=== PATIENT | female | born 1965 | race Caucasian/White ===

== ENCOUNTER 2016-12-05 10:48 | Emergency (ER) | payer BC, OTHER ==
[2016-12-05] MEDS ORDERED: Ibuprofen TAB* 800 MG PO ONE (11:35)
[2016-12-05] MEDS ORDERED: Ibuprofen TAB* 400 MG PO ONE (11:42)
[2016-12-05] MEDS ORDERED: Aspirin TAB* 325 MG PO ONE (11:46)
[2016-12-05] MEDS ORDERED: Aspirin Low Dose CHEW TAB* 81 MG PO ONE (11:50)
--- NOTE | 2016-12-05 11:51 | RAD ---
HISTORY: Hearing tachycardia, cough COMPARISONS: None VIEWS: 2: Frontal dual-energy and lateral views of the chest. FINDINGS: CARDIOMEDIASTINAL SILHOUETTE: The cardiomediastinal silhouette is normal. DIDIER: The didier are normal. PLEURA: The costophrenic angles are sharp. No pleural abnormalities are noted. LUNG PARENCHYMA: There is hyperinflation with flattening of the diaphragm and expansion of the AP diameter of the chest. ABDOMEN: The upper abdomen is clear. There is no subphrenic gas. BONES AND SOFT TISSUES: No bone or soft tissue abnormalities are noted. OTHER: None. IMPRESSION: HYPERINFLATION, CONSISTENT WITH COPD. NO ACTIVE CARDIOPULMONARY DISEASE.
--- NOTE | 2016-12-05 11:53 | UC ---
FLU HPI - HPI Summary HPI Summary: She had a cough and congestion last week. She then had sudden onset fever and myalgias start today. She also c/o of sob. She is a smoker with copd and no pcp. no prior cardiac disease. no prior ekg. she is also having subscapular back pain as well. - History of Current Complaint Chief Complaint: UCRespiratory Stated Complaint: COUGH,FEVER,SOB Time Seen by Provider: 12/05/16 11:27 Hx Obtained From: Patient Hx Last Menstrual Period: 11/15/16 Onset/Duration: Sudden Onset Severity Currently: Moderate Severity Initially: Moderate Associated Signs & Symptoms: Positive: Fever, Myalgia, Cough. Negative: Headache, Vomiting, Diarrhea Related Hx: Possible Flu/Infectious Exposure, Smoking - Allergy/Home Medications Allergies/Adverse Reactions: Allergies Allergy/AdvReac Type Severity Reaction Status Date / Time Eggs or Egg-derived Products Allergy Rash Verified 12/05/16 11:01 Penicillins Allergy Hives Verified 12/05/16 11:01 Home Medications: Home Medications Acetaminophen [Tylenol] 650 mg PO ONCE PRN 12/05/16 [History Confirmed 12/05/16] PMH/Surg Hx/FS Hx/Imm Hx Endocrine History Of: Denies: Diabetes, Hyperthyroidism, Hypothyroidism Cardiovascular History Of: Denies: Hypertension, Myocardial Infarction, Congestive Heart Failure Respiratory History Of: Reports: Asthma - A CHILD - Surgical History Surgical History: Yes Surgery Procedure, Year, and Place: PID - appy - Family History Known Family History: Positive: Diabetes - Social History Alcohol Use: Daily Alcohol Amount: 2 beers daily Substance Use Type: None Smoking Status (MU): Heavy Every Day Tobacco Smoker Type: Cigarettes Amount Used/How Often: 1/2 pack daily Review of Systems All Other Systems Reviewed And Are Negative: Yes Physical Exam Triage Information Reviewed: Yes Appearance: Well-Appearing - she has appearance of malaise but is upright and alert., No Pain Distress, Well-Nourished Vital Signs: Initial Vital Signs Temp 100 F 12/05/16 11:02 Pulse 126 12/05/16 11:02 Resp 24 12/05/16 11:02 BP 114/76 12/05/16 11:02 Pulse Ox 99 12/05/16 11:02 Vital Signs Reviewed: Yes Eyes: Positive: Conjunctiva Clear. Negative: Conjunctiva Inflamed ENT Exam: Normal ENT: Positive: Pharynx normal, TMs normal. Negative: Pharyngeal erythema, Nasal congestion, Nasal drainage, TM bulging, TM dull, TM red, Tonsillar swelling, Tonsillar exudate, Trismus Neck exam: Normal Neck: Positive: Supple, Nontender, No Lymphadenopathy Respiratory: Positive: Lungs clear - she does have tachypnea as well., Normal breath sounds, Wheezing. Negative: No accessory muscle use, Crackles, Rhonchi, Stridor Cardiovascular: Positive: No Murmur, Tachycardia Abdominal Exam: Normal Abdomen Description: Positive: Nontender, No Organomegaly, Soft Musculoskeletal Exam: Normal Musculoskeletal: Positive: Strength Intact, ROM Intact, No Edema Neurological Exam: Normal Neurological: Positive: Alert, Muscle Tone Normal, Fatigued. Negative: Lethargic, Unresponsive Psychological Exam: Normal Skin Exam: Normal Skin: Negative: rashes Flu Course/Dx - Course Course Of Treatment: She is positive for the flu and clinically this is consistent but she has subscapular pain and ekg changes. She has no routine PCP care. She has no prior ekg to compare to and is a smoker. It is quite possible that this febrile illness is precipiating a IL or cardiac strain. Labs are needed and possible admission. - Differential Dx/Diagnosis Differential Diagnosis/HQI/PQRI: Bronchitis, Broncholiolitis, Influenza, Pneumonia, RSV, Upper Respiratory Infection Provider Diagnoses: abnormal ekg. cardiac strain. influenza. sob. - Physician Notifications Discussed Patient Care With: Patient. she refused ambulance transfer despite being warned of risks of decompensation in route. She wants ride from . D/w [facility], [facility] Accepts patient. Discharge - Discharge Plan Condition: Guarded Disposition: TRANS HIGHER L OF CARE FAC
[2016-12-05 11:59] VITALS: BP 134/76
== END 2016-12-05 12:14 | disposition short-term general hospital (02) ==
LOC: UCCORT 10:48
DX: J11.1 Influenza due to unidentified influenza virus with other respiratory manifestations (principal); R06.02 Shortness of breath; R94.31 Abnormal electrocardiogram [ECG] [EKG]; R00.0 Tachycardia, unspecified; J44.9 Chronic obstructive pulmonary disease, unspecified; Z88.0 Allergy status to penicillin; F17.210 Nicotine dependence, cigarettes, uncomplicated
CPT/HCPCS: 71020; 87502; 93005; 99203; A9270-GY; G0463